=== PATIENT | female | born 1995 | race Hispanic/Latino ===

== ENCOUNTER 2019-05-27 17:08 | Emergency (ER) | payer SELFPAY ==
[~2019-05-27] VITALS: Ht 149.9 cm; Wt 49.9 kg
== END 2019-05-27 17:49 | disposition short-term general hospital (02) ==
LOC: FSED 17:08
DX: M79.632 Pain in left forearm (principal)

== ENCOUNTER 2019-07-24 01:44 | Emergency (ER) | payer SELFPAY ==
[~2019-07-24] VITALS: Ht 149.9 cm; Wt 49.9 kg
[2019-07-24] MEDS ORDERED: EPINEPHRINE 0.3 MG/0.3 ML PEN.INJCTR IM STA (01:55)
[2019-07-24] MEDS ORDERED: FAMOTIDINE 20 MG TAB PO ONE (02:00)
[2019-07-24] MEDS ORDERED: PREDNISONE 10 MG TAB PO ONE (02:00)
[2019-07-24] MEDS ORDERED: DIPHENHYDRAMINE HCL 25 MG CAP PO ONE (02:00)
[2019-07-24] MEDS ORDERED: PREDNISONE 20 MG TAB ONE (02:08)
[2019-07-24] MEDS ORDERED: EPINEPHRINE HCL 1:1000 1ML 1 MG/ML AMP ONE (02:08)
[2019-07-24] MEDS ORDERED: FAMOTIDINE 20 MG TAB ONE (02:09)
[2019-07-24] MEDS ORDERED: DIPHENHYDRAMINE HCL 25 MG CAP ONE (02:09)
== END 2019-07-24 02:53 | disposition home or self-care (01) ==
LOC: FSED 01:44
DX: L50.0 Allergic urticaria (principal)
CPT/HCPCS: 99283; J0171; J7512